=== PATIENT | female | born 1985 | race Caucasian/White ===

== ENCOUNTER 2025-09-23 22:11 | Emergency (ER) | payer MEDICAID ==
[~2025-09-23] VITALS: Ht 167.6 cm; Wt 68.0 kg
[2025-09-23 22:18] VITALS: O2SAT 99
[2025-09-24] MEDS: DIPHENHYDRAMINE 50MG/ML VIAL IV ONE (00:04)
[2025-09-24] MEDS: DEXAMETHASONE 10 MG/ML VIAL IV ONE (00:04)
[2025-09-24 00:16] LABS: BASOPHILS % 0.3 % (0.0-2.0); EOSINOPHILS % 1.2 % (0.0-5.0); HEMATOCRIT. 39.4 % (36.0-48.0); HEMOGLOBIN. 13.1 g/dL (12.0-16.0); LYMPHOCYTES % 22.1 % (20.0-50.0); MEAN PLATELET VOLUME 8.1 fl (7.4-10.4); MONOCYTES % 5.4 % (2.0-8.0); NEUTROPHILS % 71.0 % (40.0-76.0); PLATELET 304 x1000/uL (130-400); RED BLOOD CELL COUNT 4.43 mill/uL (4.2-5.4); RED CELL DISTRIBUTION WIDTH 13.3 % (11.6-14.6)
[2025-09-24 00:23] LABS: CREATININE 1.1 mg/dL (0.6-1.0)
[2025-09-24 00:24] LABS: PROTEIN TOTAL 6.7 g/dL (6.0-8.3); UREA NITROGEN BLOOD 11 mg/dL (9-23)
[2025-09-24 00:25] LABS: ASPARTATE AMINOTRANSFERASE 20 IU/L (<34)
[2025-09-24 00:26] LABS: BILIRUBIN DIRECT 0.1 mg/dL (<=3.0); BILIRUBIN TOTAL 0.5 mg/dL (0.1-1.0)
[2025-09-24] MEDS: SODIUM CHLORIDE 0.9% 1,000 ML IV ONE (00:36)
[2025-09-24] MEDS ORDERED: EPIN0.3P3 IM (00:55)
[2025-09-24 03:06] VITALS: BP 109/50; PULSE 82; RESP 15; TEMP 37; O2SAT 98
== END 2025-09-24 03:31 | disposition home or self-care (01) ==
LOC: ER 22:11 → CMPBEDREQ 09-24 16:34
DX: T78.2XXA Anaphylactic shock, unspecified, initial encounter (principal); Z88.6 Allergy status to analgesic agent; X58.XXXA Exposure to other specified factors, initial encounter; Y93.89 Activity, other specified; Y92.89 Other specified places as the place of occurrence of the external cause; Y99.8 Other external cause status
CPT/HCPCS: 99291; 80076; 80048; 85025; 36415; 93005; 96374; 96361; 96375; J1100; J1200; J7030